=== PATIENT | male | born 1995 | race Two or more races ===

== ENCOUNTER 2018-05-17 08:44 | Outpatient (CLI) | payer OTHER | END 2018-05-17 08:46 | disposition home or self-care (01) | LOC: RAD 08:44 | DX: S72.351D Displaced comminuted fracture of shaft of right femur, subsequent encounter for closed fracture with routine healing (principal) ==

== ENCOUNTER 2021-08-09 06:47 | Outpatient (CLI) | payer OTHER | END 2021-08-09 06:55 | disposition home or self-care (01) | LOC: LAB 06:47 | DX: Z20.828 Contact with and (suspected) exposure to other viral communicable diseases (principal); Z20.818 Contact with and (suspected) exposure to other bacterial communicable diseases ==